=== PATIENT | male | born 1975 | race American Indian/Alaskan Native ===

== ENCOUNTER 2016-07-26 09:22 | Outpatient (CLI) | payer OTHER ==
--- NOTE | 2016-07-29 08:49 | Magnetic Resonance Report ---
MRI BRAIN WITHOUT CONTRAST: 07/26/16 09:22:00 CLINICAL: Multiple sclerosis. COMPARISON: 08/07/15 TECHNIQUE: Axial diffusion, T1, T2, FLAIR, gradient echo T2*, and sagittal T1 sequences on a 1.5 [place] magnet. FINDINGS: Normal ventricles and sulci. No restricted diffusion. Previously described hyperintense lesions of the corpus callosum and pericallosal white matter on FLAIR and T2 are smaller and there are no new lesions. The largest lesion is in the body of the corpus callosum to the right of midline it measures 2.4 x 1.8 cm. No hemorrhage, edema or extra-axial collection. No significant mass effect. Normal pituitary and optic chiasm. The brainstem and cerebellum are normal. Intact vascular flow voids. Normal sinuses. The orbits, and soft tissues are normal. Normal calvarium and skull base. IMPRESSION: Interval improvement with slightly less prominent lesions of the corpus callosum and pericallosal white matter. No new lesions. This
== END 2016-07-26 09:23 | disposition home or self-care (01) ==
LOC: SPVIMAG 09:22
PROVIDERS: ATTEND Psychiatry & Neurology Neurology
DX: G35 Multiple sclerosis (principal)
CPT/HCPCS: 70551

== ENCOUNTER 2018-02-11 10:48 | Outpatient (CLI) | payer OTHER ==
--- NOTE | 2018-02-11 13:22 | Magnetic Resonance Report ---
MRI BRAIN WITHOUT CONTRAST: 02/11/18 10:48:00 CLINICAL: Multiple sclerosis TECHNIQUE: Axial diffusion, T1, T2, gradient echo T2*, coronal and axial FLAIR and sagittal T1 sequences on a 1.5 [place] magnet. FINDINGS: Normal ventricles and sulci. No restricted diffusion. Stable right frontal white matter and bilateral pericallosal and periventricular white matter hyperintensities on T2 and FLAIR. No new lesions. No mass or mass effect. No hemorrhage, edema or extra-axial collection. Normal pituitary and optic chiasm. The brainstem and cerebellum are normal. Intact vascular flow voids. Mucous retention cysts of the right maxillary and right sphenoid sinuses. The sinuses are otherwise clear. The orbits, and soft tissues are normal. Normal calvarium and skull base. IMPRESSION: Stable disease with no new lesions. No acute change.
== END 2018-02-11 10:49 | disposition home or self-care (01) ==
LOC: MRI 10:48
PROVIDERS: ATTEND Psychiatry & Neurology Neurology
DX: G35 Multiple sclerosis (principal); I10 Essential (primary) hypertension; J45.909 Unspecified asthma, uncomplicated; Z87.891 Personal history of nicotine dependence
CPT/HCPCS: 70551